=== PATIENT | female | born 1930 | race Caucasian/White ===

== ENCOUNTER 2017-01-29 06:35 | Emergency (ER) | payer MEDICARE, OTHER ==
[~2017-01-29 06:35] MED LIST: ARICEPT10 PO; ATV.5 PO; BETAPACE80 PO; LIPITOR10 PO; NORCO1 TA1 PO; NUEDEXTA 20-101 EACH PO; VITAMIN D1000 UNI1 PO
== END 2017-01-29 10:32 | disposition home or self-care (01) ==
LOC: ER 06:35
PROC: 0HQ2XZZ Repair Right Ear Skin, External Approach (ICD-10-PCS; principal; 2017-01-29)
DX: S01.311A Laceration without foreign body of right ear, initial encounter (principal); F03.90 Unspecified dementia, unspecified severity, without behavioral disturbance, psychotic disturbance, mood disturbance, and anxiety; I49.9 Cardiac arrhythmia, unspecified; Z98.890 Other specified postprocedural states; W19.XXXA Unspecified fall, initial encounter
CPT/HCPCS: 70450; 99284